=== PATIENT | male | born 1935 | race Caucasian/White ===

== ENCOUNTER → 2017-01-23 | Day surgery (SDC) | payer MEDICARE ==
[~2017-01-23] VITALS: Ht 172.7 cm; Wt 100.0 kg
[~2017-01-23] MED LIST: 0.9% Sodium Chloride 1,000 ML IV SCH; AMIO200T PO; AMIO400T4 PO; APIX5TAB PO; ASPI-973 PO; Amiodarone 150 mg/100 mL D5W Premix IV ONE; Benzoc-Butamben-Tetraca Spray 20 Gm Spray TOPICAL PRN; CARV6.252 PO; DOXA4TAB2 PO; EPHEDrine Sulfate 50 mg/mL Inj IVPUSH PRN; FURO40TA4 PO; LIP40 PO; LISI2.5T PO; LTRS15C EXT; Lactated Ringer's 1,000 ML IV SCH; Lactated Ringer's 500 ML IV PRN; MULT1CAP33 PO; Ondansetron 2 mg/mL 2 mL Inj IVPUSH PRN; POTA-62 PO; Phenylephrine 10,000 mCg/mL Inj IVPUSH PRN
[2017-01-23 08:09] VITALS: BP 145/89; PULSE 89; RESP 17
[2017-01-23 08:22] LABS: BASOPHILS % (AUTO) 0.2 % (0-3); EOSINOPHILS % (AUTO) 5.3 % (0-5); MONOCYTES % (AUTO) 7.5 % (4-12); Mean Corpuscular Hemoglobin 32.2 pg (27.0-35.0); Mean Corpuscular Volume 95.2 fL (81-100); NEUTROPHILS % (AUTO) 66.9 % (40-74); Platelet Count 329 bil/L (150-400)
[2017-01-23 08:39] LABS: INR 1.1 ratio
--- NOTE | 2017-01-23 09:30 | PCM.HPANE ---
Patient Data Surgeon Admitting Provider: Attending Provider:Sasha Enamorado MD Primary Care Physician:Edis Cardona MD Other Provider:[facility] Reason for Visit Persistent Atrial Fibrillation Ht/WT & BMI Height (Feet): 5 Height (Inches): 8.00 Weight (Kilograms): 100.000 Body Mass Index 33.41 Allergies Coded Allergies: Penicillins (Verified Allergy, Severe, 03/22/09) Past Anesthesia History Anesthesia History: Denies:: Abnormal Airway, Anesthesia Reactions, Difficult Intubation, Fam Anesthesia Reaction, Fam Malignant Hypertherm, Malignant Hyperthermia Diabetes History Hx Diabetes?: No MRSA MRSA: No Medications Reported Medications Potassium Chloride ER 20 Meq Tablet.er40 Meq PO DAILY Ref 0 TAKE WITH FOOD 01/22/17 Multivitamin (Multivitamins)1 Each Capsule1 Each PO DAILY 01/22/17 Betamethasone/Clotrimazole (Lotrisone Cream)60 Applic/15 Gm Cream1 Applic EXT BID PRN RASH #1 TUBE 01/22/17 Furosemide 40 Mg Cqogax84 Mg PO DAILY 01/22/17 Apixaban (Eliquis)5 Mg Tablet5 Mg PO BID 01/22/17 Doxazosin (Cardura)4 Mg Tablet4 Mg PO HS Ref 0 01/22/17 Carvedilol 6.25 Mg Keqvep66.5 Mg PO BID Ref 0 01/22/17 Atorvastatin (Lipitor)40 Mg Uzuwgs05 Mg PO DAILY Ref 0 01/22/17 Aspirin 81 Mg Npgmxm86 Mg PO DAILY Ref 0 01/22/17 History History of ENT Problems?: No HEENT History: Denies:: Abnormal Airway Cataracts Difficult Intubation Dysphagia Glaucoma Hearing Problem Sinus Problem TMJ Denture Type: None Teeth Condition: Missing Teeth Hx of Heart Problems?: Yes Cardiovascular History: Positive for:: Atrial Fibrillation Congestive Heart Failure Edema Hypertension (for 30yrs) Irregular Heartbeat (atrial fib) Denies:: Cardiac Surgery Chest Pain Heart Murmur Peripheral Vascular Hx of Respiratory Problem?: Yes Respiratory History: Positive for:: Pneumonia Hx Neurologic Problems?: No Hx of GI Problems?: No Hx of Problems?: No Hx Musculoskeletal Problems?: No Hx of Psycho/Social Problems?: No Hx Surgeries?: No Other History: Denies:: Cancer Hospitalization Thyroid Disease History Blood Transfusions: Positive for:: Accept Blood Products? 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 Category 1B: Patient has history of documented sleep apnea, and HAS received any narcotic , sedative or anesthesia administration during this stay Category 2: Patient has SUSPECTED Obstructive Sleep Apnea, and HAS received any narcotic , sedative or anesthesia administration during this stay. Category 3: Patient has SUSPECTED Obstructive Sleep Apnea and HAS NOT received narcotic, sedative or anesthesia administration during this stay. Category 4: Outpatient in Procedural Areas with known sleep apnea or who screen positive for High Risk via the STOP/BANG questionnaire. Exam Exam Vital Signs Vital Signs Date Time Temp Pulse Resp B/P Pulse Ox O2 Delivery O2 Flow Rate FiO2 01/23/17 08:09 37.0 89 17 145/89 Room Air General Appearance: Alert, Oriented X3, Cooperative, No Acute Distress HEENT/AIRWAY: MP 2, Neck Movement (FROM), Mouth Opening (3 FBMO) Lungs: Clear to Auscultation, Normal Air Movement Heart: Exam Unremarkable, Regular Rate/Rhythm, No Murmurs/Rubs/Gallops Meds/Labs/Diagnostics Labs Test 01/23/17 08:19 White Blood Count 10.3th/mm3 (3.8-10.1) Red Blood Count 4.16mil/mm3 (4.40-5.80) Hemoglobin 13.4g/dL (13.8-17.2) Hematocrit 39.6% (41.0-50.0) Mean Corpuscular Volume 95.2fL (81-100) Mean Corpuscular Hemoglobin 32.2pg (27.0-35.0) Mean Corpuscular Hemoglobin Concent 33.8% (32.0-37.0) Red Cell Distribution Width 12.5% (12.3-15.4) Platelet Count 329bil/L (150-400) Neutrophils (%) (Auto) 66.9% (40-74) Lymphocytes (%) (Auto) 19.4% (14-46) Monocytes (%) (Auto) 7.5% (4-12) Eosinophils (%) (Auto) 5.3% (0-5) Basophils (%) (Auto) 0.2% (0-3) Plan Impression Patient chart reviewed, patient interviewed and anesthestic plan with risks, benefits, and alternatives discussed, and informed consent obtained. NPO per Anesth. Guidelines: Yes ASA Physical Status: ASA3 Severe Disease (atrial fibrillation) Anesthetic Plan: GA, MAC Bene/Risks/Altern/Consents: Yes HP Complete Prior to Induction: Yes Matt Brown MD Jan 23, 2017 08:35
[2017-01-23 10:29] VITALS: BP 106/79; RESP 20
[2017-01-23 10:45] VITALS: BP 127/78; PULSE 78; RESP 20
--- NOTE | 2017-01-23 10:50 | PCM.ANEP1 ---
Post Anesthesia PACU Phase 1 Assessment Vital Signs Vital Signs Date Time Temp Pulse Resp B/P Pulse Ox O2 Delivery O2 Flow Rate FiO2 01/23/17 10:29 77 20 01/23/17 08:09 37.0 89 17 145/89 Room Air Anesthetic Administered: GA, MAC Level of Alertness: Awake, talking ETNORIO's with Equal Strength: Yes Pain: No Nausea or Vomiting: No CV Function & Hydration Stable: Yes Airway Device: N/A Oxygen Delivery: Room Air Lungs: Clear to Auscultation, Normal Air Movement Dermatome Level: Full Sensation PACU Phase 2 Assessment Complications: No Follow up Care: N/A Patient Instructions Provided: N/A Matt Brown MD Jan 23, 2017 10:50
--- NOTE | 2017-01-23 10:51 | DRSVH ---
[facility] [address] [place] [address] Echocardiogram Report Name: KOMAL ROMERO Date: 01/23/2017 Height: 68 in Hospital Exam Location: [facility] Weight: 240 lb Gender: Male BSA: 2.2 m2 : 1935 Age: 81 yrs BP: 162/97 mmHg Reason For Study: Atrial fibrillation Ordering Physician: Sasha Enamorado Performed By: Jack Bowser Referring Physician: Isa Hartley Interpretation Summary No left atrial mass or thrombus visualized. No thrombus is detected in the left atrial appendage. Spontaneous contrast in LA. The interatrial septum is intact with no evidence for an atrial septal defect. Injection of contrast documented no interatrial shunt. The left atrium is severely dilated. The left ventricle is normal in size. The ejection fraction is estimated to be 40-45%. The right ventricle is grossly normal size. Right ventricular systolic function is moderately reduced. There is moderate mitral regurgitation. Procedure: Informed consent for Transesophageal Echocardiogram, and use of a contrast agent as needed, was obtained prior to the procedure. The patient was brought to the [facility] in a fasting state. An intravenous line was placed. A topical anesthetic agent was used for oropharangeal anesthesia. A bite block was inserted. Sedation was managed by anesthesiologist; see anesthesiology notes for details. The usual views were obtained; basal, mid-esophageal, transgastric and aortic views. A 2D transesophageal echocardiogram with spectral and color flow Doppler was performed. The patient tolerated the procedure well without evidence of orophangeal or esophageal trauma. The patient's vital signs, including blood pressure, heart rate, pulse oximetry and cardiac rhythm were monitored throughout the procedure and remained stable. Contrast injection with agitated saline was performed. The patient was in atrial fibrillation with heart rates between 80-106 bpm during the exam. There were no complications. Left Ventricle: The left ventricle is normal in size. There is no thrombus. The ejection fraction is estimated to be 40-45%. There is septal wall hypokinesis. Right Ventricle: The right ventricle is grossly normal size. Right ventricular systolic function is moderately reduced. Atria: No left atrial mass or thrombus visualized. No thrombus is detected in the left atrial appendage. Spontaneous contrast in LA. The left atrium is severely dilated. The interatrial septum is intact with no evidence for an atrial septal defect. Injection of contrast documented no interatrial shunt. Mitral Valve: The mitral valve leaflets are slightly calcified. There is moderate mitral regurgitation. There are multiple regurgitant jets present. Aortic Valve: The aortic valve is trileaflet. The aortic valve opens well. There is no aortic valve stenosis. There is trace aortic regurgitation. Tricuspid Valve: The tricuspid valve is not well visualized, but is grossly normal. There is trace tricuspid regurgitation. Pulmonic Valve: The pulmonic valve leaflets are thin and pliable; valve motion is normal. Reading Physician:JORDY
[2017-01-23 10:55] VITALS: BP 137/86; PULSE 77; RESP 20
--- NOTE | 2017-01-23 11:11 | OUT PROC ---
[address] [address] PROCEDURE NOTE PATIENT: KOMAL ROMERO : 1935 MR#: [id number] ADMIT: 01/23/2017 JOB ID: [id number] DATE OF PROCEDURE: 01/23/2017 INDICATION: Atrial fibrillation with fast ventricular rate. 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 CONSENT: Informed consent was obtained from the patient after explaining benefits and the risks, which include, but not limited to, risk of GI bleed, aspiration, anesthesia-related complication, stroke, asystole, , etc. The patient verbalizes understanding. All the questions were answered. An informed consent was obtained. SEDATION: Sedation was given by anesthesiologist. DESCRIPTION OF PROCEDURE: The patient was brought to the [facility] in a stable condition. He was monitored constantly with blood pressure recording, EKG monitoring and pulse oximetry monitoring. Sedation was given by anesthesiologist. The patient has been on Eliquis 5 mg twice a day for anticoagulation. His electrolytes were checked. His potassium and magnesium were within normal limits. After adequate sedation, transesophageal echocardiogram was done which did not reveal any obvious intracardiac clot. Hence, we decided to proceed with cardioversion. Please refer to separate DAYSI report. After adequate sedation, using standard anterior-posterior pads, the patient received 200-joule synchronized biphasic shock, which was unsuccessful. Then, the patient received another synchronized biphasic 200-joule shock, which was unsuccessful. Then, we gave him 150 mg of IV amiodarone bolus over 10 minutes. After IV amiodarone bolus, the patient received a third 200-joule synchronized biphasic shock, which was unsuccessful as well. Hence, decided to discontinue the procedure. The patient tolerated the procedure overall. There was no immediate complication. He resumed consciousness without any difficulty. CONCLUSION: Unsuccessful transesophageal echocardiography cardioversion. PLAN: The plan is to start the patient on amiodarone p.o. 200 mg b.i.d. for a week, followed by 200 mg daily. Will continue beta jin as usual. The patient is already on beta jin. Hence, I am not using higher doses of amiodarone. He will benefit with BRIAN inhibitor. We will start him with lisinopril 2.5 mg daily. Benefits and side effects discussed with the patient and his and daughter. Will cut down Lasix from 80 mg to 40 mg daily, as he appears more compensated clinically. Cut down potassium chloride from 40 to 20 mEq daily. Check electrolytes in two weeks. In 3-4 weeks the patient will be seen either by me or my mid level and then, we will reschedule him for cardioversion if he remains in AFib. The patient and his understood. The patient to remain on Eliquis 5 mg twice a day for anticoagulation.
--- NOTE | 2017-01-23 11:15 | NUR ---
Discharge Pt discharged to home after stable recovery post DAYSI/Cardioversion. Cardioversion was unsuccessful Pt VSS on RA, Pt and stated verbal understanding of discharge instuctions regarding changes to medications, signs of worsening condition and follow up appointments, pt and left with personal belongings, discharge paperwork, IV dc'd intact at approximately 1105.
== END | disposition home or self-care (01) ==
LOC: SOUO 00:55
PROVIDERS: ATTEND Internal Medicine Cardiovascular Disease
DX: I48.1 Persistent atrial fibrillation (principal); I25.10 Atherosclerotic heart disease of native coronary artery without angina pectoris; I27.2 Other secondary pulmonary hypertension; I27.81 Cor pulmonale (chronic); E66.9 Obesity, unspecified; I10 Essential (primary) hypertension; E78.00 Pure hypercholesterolemia, unspecified; I25.2 Old myocardial infarction; Z95.5 Presence of coronary angioplasty implant and graft
CPT/HCPCS: 36415; 80048; 83735; 85025; 85610; 92960; C8925